=== PATIENT | male | born 1930 | race Caucasian/White ===

== ENCOUNTER 2017-02-27 08:37 | Emergency (ER) | payer MEDICARE, OTHER ==
--- NOTE | ~2017-02-27 | ER ---
PATIENT'S NAME: ARLEY OROZCO [facility] AGE: 86 Y [address] ROOM: [place] [address] LOCATION: [facility] ADMIT DATE: 02/27/2017 ER/Outpatient Report DISCHARGE DATE: 02/27/2017 FAMILY PHYSICIAN: PHYSICIAN, NO ATTENDING PHYSICIAN: Jama Dalton CHIEF COMPLAINT: Concern about abnormal INR. HISTORY OF PRESENT ILLNESS: The patient is originally from [place]. He is in the [place] area for a convention with his . He travel significantly. He has a history of atrial fibrillation and valve repair and is on warfarin for that issue. He did fall, more of a stumble rather than fall and did bump his arm on a door the other day, which caused some unusual bruising, but otherwise he feels absolutely fine and has no other complaints. He just wants his labs checked today. PAST MEDICAL HISTORY: Atrial fibrillation and valve. 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 ALLERGIES: NONE. MEDS: Please see med list in the record. REVIEW OF SYSTEMS: All systems were reviewed as pertinent and negative except as noted in the HPI. PHYSICAL EXAMINATION: VITAL SIGNS: Blood pressure is 126/90, pulse is 96, respiratory rate is 20, temperature 97, SpO2 is 94%. GENERAL: Age-appropriate male. No obvious abnormalities. HEENT: Normocephalic, atraumatic. Eyes are PERRL. Oropharynx is clear. NECK: Supple. Trachea is midline. CHEST: Heart is even rate and regular rhythm. No obvious murmurs. LUNGS: Grossly clear to auscultation. ABDOMEN: Benign. EXTREMITIES: Notable for multiple areas of ecchymosis on both forearms, most prominent on the left. No evidence of active bleeding. No skin tears. Skin PATIENT'S NAME: ARLEY OROZCO [facility] AGE: 86 Y [address] ROOM: [place] [address] LOCATION: [facility] ADMIT DATE: 02/27/2017 ER/Outpatient Report DISCHARGE DATE: 02/27/2017 FAMILY PHYSICIAN: PHYSICIAN, NO ATTENDING PHYSICIAN: Jama Dalton is otherwise intact. Warm and dry. LABS: Coags were obtained. INR is 1.84, pro-time is 19.4, PTT is 31. IMPRESSION: Subtherapeutic INR. EMERGENCY DEPARTMENT COURSE: The patient seen evaluated as above. No traumatic workup required at this time. INR is subtherapeutic. The patient will contact his usual provider in [place] for further guidance regarding titration of his warfarin. All questions were answered. The patient was discharged. MD ASHLEY JAY/chris /[id number] d: 02/27/17 1713 t: 03/12/17 172, OUTPATIENT REPORT
[2017-02-27 09:45] LABS: INR - (THERAPEUTIC) 1.84 (0.92-1.07); PROTIME 19.4 SECONDS (9.8-11.4)
== END 2017-02-27 09:53 | disposition disaster alternative care site (69) ==
LOC: GACC 08:37
PROVIDERS: Emergency Medicine
DX: R79.1 Abnormal coagulation profile (principal); I48.91 Unspecified atrial fibrillation; Z79.899 Other long term (current) drug therapy; Z98.890 Other specified postprocedural states